=== PATIENT | female | born 1945 | race Hispanic/Latino ===

== ENCOUNTER 2016-12-28 18:59 | Emergency (ER) | payer OTHER, MEDICARE ==
[2016-12-28 20:52] VITALS: BP 150/79
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
[2016-12-29] MEDS ORDERED: TYLENOL PO ONE (03:11)
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
--- NOTE | 2016-12-29 07:27 | XRay Report ---
LUMBOSACRAL SPINE, 3 VIEWS: History: Back pain Findings: There is mild levocurvature to the lumbar spine. No evidence for compression deformity, bone lesion or subluxation. Moderate degenerative disc disease and facet arthropathy are identified at all levels. The sacrum and SI joints are within normal limits. Impression: Scoliosis with degenerative changes.
== END 2016-12-29 05:38 | disposition home or self-care (01) ==
LOC: ED 18:59
DX: M54.2 Cervicalgia (principal); M54.5 Low back pain; I10 Essential (primary) hypertension; E11.9 Type 2 diabetes mellitus without complications; Z79.82 Long term (current) use of aspirin; V89.2XXA Person injured in unspecified motor-vehicle accident, traffic, initial encounter; Y93.89 Activity, other specified; Y99.9 Unspecified external cause status; Y92.410 Unspecified street and highway as the place of occurrence of the external cause
CPT/HCPCS: 70450; 72100; 72125; 82962

== ENCOUNTER 2022-04-19 14:31 | Emergency (ER) | payer OTHER, MEDICARE ==
[2022-04-19 14:34] VITALS: BP 154/80
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
== END 2022-04-20 02:24 | disposition home or self-care (01) ==
LOC: ED 14:31
DX: M25.531 Pain in right wrist (principal); I10 Essential (primary) hypertension; E11.9 Type 2 diabetes mellitus without complications; Z88.6 Allergy status to analgesic agent; Z79.899 Other long term (current) drug therapy; V87.7XXA Person injured in collision between other specified motor vehicles (traffic), initial encounter; Y93.89 Activity, other specified; Y92.488 Other paved roadways as the place of occurrence of the external cause; Y99.8 Other external cause status
CPT/HCPCS: 99283